=== PATIENT | female | born 1995 | race Two or more races ===

== ENCOUNTER 2016-10-14 15:29 | Emergency (ER) | payer SELFPAY ==
[~2016-10-14 15:29] MED LIST: DOXY100C14 PO; METR500T4 PO; No home meds; OXYC1TAB7 PO; TRAM50TA PO
[2016-10-14 16:07] LABS: BILIRUBIN,URINE NEGATIVE (NEG); GLUCOSE,URINE NEGATIVE (NEG); NITRITE,URINE NEGATIVE (NEG); PH,URINE 6.5; PROTEIN,URINE NEGATIVE (NEG-TRACE)
[2016-10-14 16:15] LABS: BACTERIA,URINE FEW /HPF (0-FEW); RBC,URINE OCC /HPF (0-2); SQUAMOUS EPITHELIAL CELL,UR FEW /LPF; WBC,URINE RARE /HPF (0-4)
[2016-10-14 17:11] VITALS: BP 118/65
--- NOTE | 2016-10-14 17:24 | ED.ADGEN ---
Past Medical History Past Medical History: No Pertinent History Past Surgical History: Appendectomy Alcohol Use: None Drug Use: None Adult General Chief Complaint Chief Complaint: ABDOMINAL PAIN HPI HPI Patient is a 21 year old woman, who is primarily Danish-speaking, and translation was assisted with language line business proposal rep, who presents to the emergency department with complaint of 2 weeks of left-sided pelvic and flank pain, with dark discharge. Patient states that she does not have concerns for sexually transmitted diseases, states that her last menstrual period was September 13, but that she had some irregularity and spotting after that menses. She does not have a [employer], has not recently had a pelvic examination. She states she is having some abdominal cramping which is sharp and stabbing at this time, and that is sharp and will wrap around to the left side of her back as well at times. Denies any injuries, denies any pain with social intercourse, any urinary complaints, any similar to previously, states she has some nausea sometimes, no vomiting, no diarrhea. No other complaints, she is not taking any medication for this pain prior to going to the ED for evaluation. Review of Systems Review of Systems Constitutional: Denies fever or chills. [] Eyes: Denies change in visual acuity. [] HENT: Denies nasal congestion or sore throat. [] Respiratory: Denies cough or shortness of breath. [] Cardiovascular: Denies chest pain or edema. [] GI: Left-sided and superpubic abdominal pain, with nausea, vomiting, bloody stools or diarrhea. Associated with dark vaginal discharge. : Denies dysuria. [] Musculoskeletal: Denies back pain or joint pain. [] Integument: Denies rash. [] Neurologic: Denies headache, focal weakness or sensory changes. [] Endocrine: Denies polyuria or polydipsia. [] Lymphatic: Denies swollen glands. [] Psychiatric: Denies depression or anxiety. [] Current Medications Current Medications Current Medications Medications (Trade) Dose Ordered Sig/Clarisse Start Time Stop Time Status Last Admin Dose Admin Metronidazole (Flagyl) 500 mg 1X ONCE 10/14/16 18:45 10/14/16 18:46 DC 10/14/16 18:53 500 MG Naproxen (Naprosyn) 250 mg 1X ONCE 10/14/16 18:45 10/14/16 18:46 DC 10/14/16 18:53 250 MG Allergies Allergies Allergies Coded Allergies Type Severity Reaction Last Updated Verified No Known Drug Allergies 03/30/16 No Physical Exam Physical Exam Constitutional: Well developed, well nourished, no acute distress, non-toxic appearance. [] HENT: Normocephalic, atraumatic, bilateral external ears normal, oropharynx moist, no oral exudates, nose normal. [] Eyes: PERRLA, EOMI, conjunctiva normal, no discharge. [] Neck: Normal range of motion, no tenderness, supple, no stridor. [] Cardiovascular:Heart rate regular rhythm, no murmur , S1, S2, rubs or gallops. [ ] Lungs & Thorax: Bilateral breath sounds clear to auscultation, no wheezing, rhonchi, rales. No chest or crepitus or tenderness. [] Abdomen: Bowel sounds normal, soft, patient with suprapubic and left pelvic tenderness, no rebound, rigidity, no guarding, no masses, no pulsatile masses. [ ] Skin: Warm, dry, no erythema, no rash. [] Back: No tenderness, no CVA tenderness. [] Extremities: No tenderness, no cyanosis, no clubbing, ROM intact, no edema. [] Neurologic: Alert and oriented X 3, normal motor function, normal sensory function, no focal deficits noted. [] Psychologic: Affect normal, judgement normal, mood normal. [] Pelvic examination: Patient with no CMT, normal-appearing cervix and examination , patient with mild left-sided pelvic tenderness, no adnexal masses identified. Speculum exam performed issue, specimens taken, with dark discharge consistent with the patient beginning her menstrual cycle. Current Patient Data Vital Signs Vital Signs Date Time Temp Pulse Resp B/P Pulse Ox O2 Delivery O2 Flow Rate FiO2 10/14/16 17:11 84 20 118/65 98 Room Air 10/14/16 15:32 98.4 98.4 Lab Values Laboratory Tests Test 10/14/16 15:03 10/14/16 16:00 POC Urine HCG, Qualitative Hcg negative (Negative) Urine Collection Type Clean catch Urine Color Yellow Urine Clarity Clear Urine pH 6.5 Urine Specific [place] 1.020 Urine Protein Negativemg/dL (NEG-TRACE) Urine Glucose (UA) Negativemg/dL (NEG) Urine Ketones (Stick) Negativemg/dL (NEG) Urine Blood Small (NEG) Urine Nitrite Negative (NEG) Urine Bilirubin Negative (NEG) Urine Urobilinogen Dipstick 2.0mg/dL (0.2 mg/dL) Urine Leukocyte Esterase Negative (NEG) Urine RBC Occ/HPF (0-2) Urine WBC Rare/HPF (0-4) Urine Squamous Epithelial Cells Few/LPF Urine Bacteria Few/HPF (0-FEW) Microbiology 10/14/16 Wet Prep - Final, Complete EKG EKG Not indicated. [] Radiology/Procedures Radiology/Procedures [] [facility] [address] [place] [address] IMAGING REPORT Signed PATIENT: KASEY ROSADO ACCOUNT: [id number] : 1995 LOCATION: ER AGE: 21 SEX: F EXAM STATUS: REG ER ORD. PHYSICIAN: JULIETH BERNARD DO REASON: L sided pelvic pain x 2 weeks PROCEDURE: PELVIS COMPLETE Examination: Ultrasound pelvis. HISTORY History of left-sided pelvic pain for 2 weeks. COMPARISON None available. Findings : The uterus measures 7.5 x 6.9 x 5.3 centimeters. The uterus is retroverted. The right ovary measures 3.7 x 2.5 x 3.3 centimeters. The left ovary measures 4.0 x 3.0 x 2.2 centimeters. Blood flow identified in the right left ovaries. The endometrium is 6.7 millimeters in thickness. IMPRESSION Retroverted uterus. Otherwise unremarkable exam. Electronically signed by: Santos Hitchcock (Oct 14, 2016 18:27:45) DICTATED and SIGNED BY: SANTOS HITCHCOCK MD DATE: 10/14/16 182 CC: JULIETH BERNARD DO; NO PCP ~ Course & Med Decision Making Course & Med Decision Making Pertinent Labs and Imaging studies reviewed. (See chart for details) Pelvic examination performed, ultrasound obtained to further elucidate the patient's symptoms. No concerning findings were identified on ultrasound. Wet prep revealed bacterial vaginosis. Examination and evaluation otherwise unremarkable. Patient resting comfortably and reevaluation. Did receive metronidazole and naproxen in the ED without issue. Discussed with patient importance of establishing a primary care provider for follow-up, patient was given a copy of her ultrasound results, will be contacted if results require follow-up. Patient discharged home in stable condition with instructions to follow-up, and list of available providers, prescription for metronidazole, to return to the ED if concerning symptoms as discussed develop. Dragon Disclaimer Dragon Disclaimer This electronic medical record was generated, in whole or in part, using a voice recognition dictation system. Departure Impression: Primary Impression: Bacterial vaginosis Additional Impression: Pelvic pain Disposition: 01 HOME, SELF-CARE Condition: IMPROVED Scripts Metronidazole 500 Mg Tablet1 Tab PO BID #14 TAB Prov:JULIETH BERNARD DO 10/14/16 Problem Qualifiers JULIETH BERNARD DO Oct 14, 2016 17:24
--- NOTE | 2016-10-14 18:29 | RAD ---
Examination: Ultrasound pelvis. HISTORY History of left-sided pelvic pain for 2 weeks. COMPARISON None available. Findings : The uterus measures 7.5 x 6.9 x 5.3 centimeters. The uterus is retroverted. The right ovary measures 3.7 x 2.5 x 3.3 centimeters. The left ovary measures 4.0 x 3.0 x 2.2 centimeters. Blood flow identified in the right left ovaries. The endometrium is 6.7 millimeters in thickness. IMPRESSION Retroverted uterus. Otherwise unremarkable exam. Electronically signed by: Santos Hitchcock (Oct 14, 2016 18:27:45)
[2016-10-14] MEDS ORDERED: METRONIDAZOLE 500 MG TABLET. PO ONE (18:45)
[2016-10-14] MEDS ORDERED: NAPROXEN 250 MG TABLET PO ONE (18:45)
[2016-10-14] MEDS ORDERED: METR500T4 PO (18:57)
== END 2016-10-14 19:17 | disposition home or self-care (01) ==
LOC: MERGE 15:29 → ER 15:29
DX: N76.0 Acute vaginitis (principal); R10.2 Pelvic and perineal pain
CPT/HCPCS: 76856; 81001; 84703; 87491; 87591; 99285; Q0111; 81025

== ENCOUNTER 2017-09-12 21:17 | Emergency (ER) | payer SELFPAY ==
[2017-09-12 21:41] LABS: URINE HCG POC HCG NEGATIVE (Negative)
== END 2017-09-12 23:20 | disposition home or self-care (01) ==
LOC: ER 21:17
DX: K57.32 Diverticulitis of large intestine without perforation or abscess without bleeding (principal); K52.9 Noninfective gastroenteritis and colitis, unspecified; G89.29 Other chronic pain; Z90.49 Acquired absence of other specified parts of digestive tract
CPT/HCPCS: 74176; 81025; 99284-25

== ENCOUNTER 2019-03-31 17:43 | Inpatient (IN) | payer SELFPAY ==
[~2019-03-31] VITALS: Ht 157.5 cm; Wt 68.0 kg
[~2019-03-31 17:43] MED LIST changes: +CIPR500T94 PO; +METR-111 PO; +METR-34 PO; -METR500T4 PO
[2019-03-31 18:51] LABS: BILIRUBIN,URINE NEGATIVE (NEG); CLARITY,URINE CLEAR; COLOR,URINE YELLOW; NITRITE,URINE NEGATIVE (NEG); PH,URINE 7.5; PROTEIN,URINE NEGATIVE (NEG-TRACE)
[2019-03-31 18:57] LABS: AMNIO PT NEGATIVE
[2019-03-31 19:12] LABS: SQUAMOUS EPITHELIAL CELL,UR MOD /LPF
[2019-03-31 19:13] LABS: BACTERIA,URINE MANY /HPF (0-FEW); RBC,URINE OCC /HPF (0-2)
[2019-03-31] MEDS: IV RINGERS,LACTATED 1000ML 1,000 ML IV PRN ×2 (19:30→22:36)
[2019-03-31] MEDS ORDERED: ZOLPIDEM 5 MG TABLET. PO PRN (20:30)
[2019-04-01] MEDS ORDERED: IV RINGERS,LACTATED 1000ML 1,000 ML IV SCH (03:05)
[2019-04-01] MEDS ORDERED: LIDOCAINE 1% PF 30 ML VIAL. INJ PRN (03:15)
[2019-04-01] MEDS ORDERED: NALBUPHINE 10 MG/ML AMPUL. IV PRN (03:15)
[2019-04-01] MEDS ORDERED: fentaNYL PF VIAL 100 MCG/2 ML VIAL IV PRN (03:15)
[2019-04-01] MEDS ORDERED: 0.9 % SODIUM CHLORIDE 10 ML DISP.SYRIN. IV PRN ×2 (03:15→16:15)
[2019-04-01] MEDS ORDERED: IBUPROFEN 400 MG TABLET. PO PRN (03:15)
[2019-04-01] MEDS ORDERED: OXYTOCIN 30 UNIT/500 ML PREMIX 500 ML IV PRN ×3 (03:15→16:15)
[2019-04-01] MEDS ORDERED: ACETAMINOPHEN 325 MG TABLET. PO PRN ×2 (03:15→16:15)
[2019-04-01] MEDS ORDERED: TERBUTALINE 1 MG/ML VIAL. SQ PRN (03:15)
[2019-04-01] MEDS ORDERED: ONDANSETRON PF 4 MG/2 ML VIAL. IV PRN (03:15)
[2019-04-01 03:43] LABS: BASO % 0 % (0-3); EOS # 0.1 x10^3/uL (0.0-0.7); EOS % 1 % (0-3); HEMATOCRIT 28.7 % (36.0-47.0); HEMOGLOBIN 9.7 g/dL (12.0-15.5); LYMPH # 1.4 x10^3/uL (1.0-4.8); LYMPH % 23 % (24-48); MEAN CORPUSCULAR HEMOGLOBIN 30 pg (25-35); MEAN CORPUSCULAR HGB CONC 34 g/dL (31-37); MEAN CORPUSCULAR VOLUME 90 fL (79-100); MONO # 0.4 x10^3/uL (0.0-1.1); MONO % 7 % (0-9); NEUT # 4.4 x10^3/uL (1.8-7.7); NEUT % 69 % (31-73); PLATELET COUNT 124 x10^3/uL (140-400); RED CELL DISTRIBUTION WIDTH 12.8 % (11.5-14.5); WHITE BLOOD COUNT 6.4 x10^3/uL (4.0-11.0)
[2019-04-01 03:49] VITALS: BP 102/53
[2019-04-01] MEDS ORDERED: PENICILLIN G K 5,000,000 UNIT in IV DEXTROSE 5% 100ML 100 ML IV ONE (04:00)
--- NOTE | 2019-04-01 07:36 | PDOC1 ---
OB - History Hx of Present Care: Good Care Ultrasounds: Normal mid trimester US Obstetrical Complications: None Medical Complications: None Past Family/Social History * Past Medical, Surgical, Family and Obstetric Histories reviewed from chart. Rubella: Unknown RPR/VDRL: Unknown GBS Status: Unknown HBsAG: Unknown OB - Chief Complaint & HPI Date of Admission: Date of Admission: Apr 01, 2019 at 03:02 Chief Complaint/History : 3 Para: 2 EGA: 39 Reason for admission: active labor Admission Nurse Assessment Rev: Yes OB - Admission Exam Physical Exam Vitals: VS - Last 72 Hours, by Label Date Time Temp Pulse Resp B/P (MAP) Pulse Ox O2 Delivery O2 Flow Rate FiO2 04/01/19 03:49 98.6 86 18 102/53 (69) Room Air 98.6 HEENT: Normal Heart: Regular Rate Lungs: Clear Abdomen: Gravid, Non tender, Soft Extremities: Edema Reflexes: Normal Cervical Dilatation: 2cm Effacement: 75% Station: -3 Membranes: Intact Heart Rate: Normal Accelerations: Accelerations Present Decelerations: No decelerations Contractions on Admission: 6-10 Minutes Apart Intensity: Moderate Text A: 39 wks IUP Active labor P: Admit labor management. ANABELL COLMENARES Jr, MD Apr 01, 2019 07:36
[2019-04-01] MEDS: IV RINGERS,LACTATED 1000ML 1,000 ML IV PRN (09:07)
[2019-04-01] MEDS: PENICILLIN G K 2,500,000 UNIT in IV DEXTROSE 5% 50 ML IV SCH ×2 (09:08→13:02)
--- NOTE | 2019-04-01 16:10 | PDOC ---
VAGINAL DELIVERY DATE DATE: 04/01/19 TIME: 16:09 : 3 Para: 3 EGA: 39 VAGINAL DELIVERY: VTX VACCUM ASSISTED: No PLACENTA: Spontaneous 02/27 SEX: Male WEIGHT Weight [ 3485 gm] Nuchal Cord: No Amniotic Fluid: Clear PAIN: Natural EPISIOTOMY: No EXTENSION: No EBL 300 ml COMPLICATIONS none CONDITION stable Signs of Intrauterine Infectio: None Shoulder Dystocia: No ANABELL COLMENARES Jr, MD Apr 01, 2019 16:10
[2019-04-01] MEDS ORDERED: MAGNESIUM HYDROXIDE 2,400 MG/30 ML ORAL.SUSP. PO PRN (16:15)
[2019-04-01] MEDS ORDERED: PHENYLEPH/MINERAL OIL/PETROLAT RECTAL OINTMENT TUBE. RC PRN (16:15)
[2019-04-01] MEDS ORDERED: MAG HYDROX/ALUMINUM HYD/SIMETH 30 ML ORAL.SUSP PO PRN (16:15)
[2019-04-01] MEDS ORDERED: MMR per PROTOCOL. MC PRN (16:15)
[2019-04-01] MEDS ORDERED: ZOLPIDEM 5 MG TABLET. PO PRN (16:15)
[2019-04-01] MEDS ORDERED: SIMETHICONE 80 MG TAB.CHEW PO PRN (16:15)
[2019-04-01] MEDS ORDERED: diphenhydrAMINE HCL 25 MG CAPSULE PO PRN (16:15)
[2019-04-01] MEDS ORDERED: BENZOCAINE 20% TOPICAL AEROSOL SPRAY 57GM CAN. TP PRN (16:15)
[2019-04-01] MEDS ORDERED: HYDROCORTISONE 1% TOPICAL OINTMENT 30GM TUBE. TP PRN (16:15)
[2019-04-01] MEDS: IBUPROFEN 400 MG TABLET. PO PRN (19:22)
[2019-04-01 21:58] VITALS: BP 102/50
[2019-04-02] MEDS: oxyCODONE/APAP 5/325 1 TAB TABLET PO PRN ×2 (01:44→11:18)
[2019-04-02 01:47] VITALS: BP 100/54
[2019-04-02 06:08] VITALS: BP 91/52
[2019-04-02] MEDS: IBUPROFEN 400 MG TABLET. PO PRN ×2 (06:11→18:15)
[2019-04-02 08:12] LABS: BASO % 0 % (0-3); EOS # 0.1 x10^3/uL (0.0-0.7); EOS % 1 % (0-3); HEMATOCRIT 26.7 % (36.0-47.0); LYMPH # 1.5 x10^3/uL (1.0-4.8); LYMPH % 19 % (24-48); MEAN CORPUSCULAR HEMOGLOBIN 30 pg (25-35); MEAN CORPUSCULAR HGB CONC 34 g/dL (31-37); MEAN CORPUSCULAR VOLUME 90 fL (79-100); MONO # 0.6 x10^3/uL (0.0-1.1); MONO % 7 % (0-9); NEUT # 5.9 x10^3/uL (1.8-7.7); NEUT % 73 % (31-73); PLATELET COUNT 133 x10^3/uL (140-400); RED BLOOD COUNT 2.97 x10^6/uL (3.50-5.40); WHITE BLOOD COUNT 8.1 x10^3/uL (4.0-11.0)
[2019-04-02 11:00] VITALS: BP 96/48
[2019-04-02] MEDS: DOCUSATE SODIUM 100 MG CAPSULE. PO PRN ×2 (11:00→18:14)
[2019-04-02] MEDS: FERROUS SULFATE 325 MG TABLET. PO SCH ×2 (11:00→18:14)
--- NOTE | 2019-04-02 14:13 | PDOC ---
Provider Note Provider Note Doing well VSS uterus NTTP FU in AM ROSA BOB MD Apr 02, 2019 14:13
[2019-04-02 17:46] VITALS: BP 108/66
[2019-04-02 19:30] VITALS: BP 105/62
[2019-04-03] MEDS: IBUPROFEN 400 MG TABLET. PO PRN (04:49)
[2019-04-03 05:00] VITALS: BP 103/49
[2019-04-03] MEDS: FERROUS SULFATE 325 MG TABLET. PO SCH (08:37)
[2019-04-03] MEDS: DOCUSATE SODIUM 100 MG CAPSULE. PO PRN (08:37)
[2019-04-03 08:51] VITALS: BP 111/67
--- NOTE | 2019-04-03 09:55 | PDOC3 ---
OB DISCHARGE SUMMARY DATE OF ADMISSION: 04/01/19 DATE OF DISCHARGE: 04/03/19 REASON FOR ADMISSION: Onset of labor INTRAPARTUM PROCEDURES: Spontanous Vag Deliv DISCHARGE DIAGNOSIS: Term Delivered DISCHARGE INFORMATION: Activity (ad henri), Diet (regular), Instructions (pelvic rest x 6 wks) HOSPITAL COURSE Term gestation delivered vaginally without complications. CONDITION AT DISCHARGE stable ANABELL COLMENARES Jr, MD Apr 03, 2019 09:55
[2019-04-03] MEDS ORDERED: IBUP-1027 PO (09:56)
--- NOTE | 2019-04-03 09:57 | DISCH ---
DISCHARGE INSTRUCTIONS Condition on Discharge Condition on Discharge: Stable Activity After Discharge Activity Instructions for Disc: Activity as tolerated Lifting Instructions after Dis: No heavy lifting Exercise Instruction after Dis: Progress as tolerated Driving Instructions after Dis: Do not drive today Diet after Discharge Diet after Discharge: Regular Diet Texture: Regular Liquid Texture: Thin Liquid Swallowing Supervision: None needed Wound Incision Care Wound/Incision Care: No wound care needed Contacting the DRNorman after DC Call your doctor for: Concerns you may have Follow-Up Follow up with: [facility]air in 6 wks Treatment/Equipment after DC Adaptive Equipment Issued: None ANABELL COLMENARES Jr, MD Apr 03, 2019 09:57
[2019-04-03] MEDS ORDERED: ALPRAZolam 0.5 MG TABLET PO ONE (14:00)
[2019-04-03 15:45] VITALS: BP 116/80
== END 2019-04-03 16:00 | disposition home or self-care (01) | DRG 807 ==
LOC: 3 SO LND 17:43 → OBSVTOIN 04-01 03:02 → 3 NORTH 04-01 20:43
PROVIDERS: ADMIT Obstetrics & Gynecology; ATTEND Obstetrics & Gynecology
PROC: 10E0XZZ Delivery of Products of Conception, External Approach (ICD-10-PCS; principal; 2019-04-01)
DX: O80 Encounter for full-term uncomplicated delivery (principal); Z37.0 Single live birth; Z3A.39 39 weeks gestation of pregnancy
CPT/HCPCS: 36415; 81001; 84112; 85025; 86592; 86703; 86762; 86850; 86900; 86901; 87086; 87340; G0378; G0379; J2300; J2405; J2540; J2590; J7120